=== PATIENT | female | born 1960 | race Caucasian/White ===

== ENCOUNTER 2017-06-14 12:16 | Emergency (ER) | payer OTHER, SELFPAY ==
[2017-06-14 12:18] VITALS: BP 108/69; PULSE 108; RESP 16; TEMP 37; O2SAT 95; BMI 23.1
--- NOTE | 2017-06-14 12:38 | ED.DCSUM_ITS ---
- ER Visit Summary Date of Service: 06/14/17 Chief Complaint: Dental pain History of Present Illness: The patient is a 57 F who has an appointment with dental works tomorrow. She also sees Dr. Riggs. She reports that her left maxillary first molar broke approximately 1 year ago. However, she has pain that began 2 days ago. It is a throbbing pain that is 10 out of 10 severity. Is worsened by eating and cold temperatures. Is relieved by NSAIDs. She reports that she has been nauseated and vomited once today without blood. Physical Examination: Vitals: Stable. Afebrile. Mouth: No trismus. No edema of the floor of the mouth. Left maxillary first molar is eroded to gumline. She has soft tissue swelling over her left maxilla. No focal abscess. General: A&O x 3. NAD. Cardiovascular exam: Regular rate and rhythm, no murmur, rub or gallop. Respiratory exam: Clear to auscultation bilaterally. No wheezes or stridor. Abdominal exam: Soft, nontender, nondistended, normal bowel sounds. No peritoneal signs. Extremity: No clubbing, cyanosis, or edema. Emergency Department Course and Treatment: An OAR[facility] report was obtained and was negative. She was treated with [place], Zofran, and penicillin here. Treatment Plan: Patient will be discharged with [place], Zofran, and penicillin. Instructed to keep her appointment with her dentist. Disposition: To home in improved and stable condition. Impression: 1. Dental abscess. This note was generated with [employer] dictation software. It may contain incorrect words, spelling, and punctuation that were not noted in review of the chart prior to signing ED Disposition - Plan for ED Patient: Disposition: Home or Assisted Living Chief Complaint: Dental Instructions: Dental Abscess Prescriptions: Hydrocodone Bitart/Apap 5-325 [[place] 5/325] 1 - 2 tablet PO Q4H PRN PRN 3 Days # 20 tablet PRN Reason: Pain Ondansetron [Zofran Odt] 4 mg PO Q8H PRN PRN #10 tablet PRN Reason: Nausea Penicillin V Potassium 500 mg PO 4X/DAY #40 tablet Referrals: Dentist,Your [STAFF PHYSICIAN] - Keep Deangelo appointment
[2017-06-14] MEDS: Ondansetron ODT 4 MG Tablet PO (12:43)
[2017-06-14] MEDS: Penicillin Vk 250 MG Tablet 500 MG PO (12:49)
[2017-06-14] MEDS: HYDROcodone Bitartrate/Apap 5/325 Tablet PO (12:49)
--- OUTSIDE RECORDS SUMMARY | 2017-06-14 12:50 | XMS RPT_ITS ---
:1960 Demographics Phone Unavailable Preferred Language eng-US Marital Status Unknown Scientology Affiliation Unknown Race Unknown Ethnic Group Unknown Author Organization [facility] Care Team Providers Name Role Phone Willi Morel Attending Unavailable PROBLEMS PROBLEMS No Problem Records FoundPROCEDURES PROCEDURES No Procedure Records FoundRESULTS RESULTS No Result Records FoundALLERGIES ALLERGIES DATE TYPE / CODE NAME / CODE REACTION SEVERITY SOURCE 06/14/2017 Drug No Known Unknown [facility] Allergy/4160 Allergies/F00 [facility] [address](SNOMED [id number](RXNOR Repository CT) M) ENCOUNTERS ENCOUNTERS ADMIT/DISCHARGE ACCOUNT ADMITTING ENCOUNTER LOCATION SOURCE NUMBER CLASS 06/14/2017 [id number] [facility] [place] [address] [place] [address] ing:ED Repository PAYERS PAYERS ENCOUNTER GUARANTOR PAYER SUBSCRIBER SOURCE 06/14/2017 Primary NOT GIVENUNK [facility] Insurance:SELF PAY [place] Number: Effective Repository Date:2017-06-14
[2017-06-14 12:57] VITALS: BP 138/57; PULSE 71; RESP 16; O2SAT 97
== END 2017-06-14 12:57 | disposition home or self-care (01) ==
PROVIDERS: Emergency Provider Emergency Medicine; Family Provider Family Medicine; PCP Family Medicine
DX: K08.89 Other specified disorders of teeth and supporting structures (principal); K04.7 Periapical abscess without sinus; E03.9 Hypothyroidism, unspecified; Z87.891 Personal history of nicotine dependence
CPT/HCPCS: 99283

== ENCOUNTER 2019-05-30 13:31 | Emergency (ER) | payer OTHER, SELFPAY ==
[2019-01-11 17:13] VITALS: BMI 25.0
[2019-05-30 13:32] VITALS: BP 158/89; PULSE 123; RESP 15; TEMP 36.9; O2SAT 98; BMI 25.5
--- NOTE | 2019-05-30 13:36 | EKG12_ITS ---
Test Reason : PALPS Blood Pressure : / mmHG Vent. Rate : 108 BPM Atrial Rate : 108 BPM P-R Int : 130 ms QRS Dur : 084 ms QT Int : 328 ms P-R-T Axes : 057 013 026 degrees QTc Int : 439 ms Sinus tachycardia Otherwise normal ECG Confirmed by JENNY DUMONT, PRESTON ([id number]), primer expeditor and drier JOSLYN GOODWIN ([id number]) on 06/01/2019 9:50:16 AM Referred By: KIRSTY Confirmed By:PRESTON ALVARADO MD
[2019-05-30 14:03] VITALS: BP 124/75; PULSE 108; RESP 18; O2SAT 94
--- NOTE | 2019-05-30 14:27 | ED.DCSUM_ITS ---
History of Present Illness Chief Complaint: Palpitations Informant: Patient Onset: Hours - 1-2 Timing: Intermittent, Lasts - Few minutes Quality: Palpitations/skipping/racing Location: Chest Current Severity: Mild Maximum Severity: Severe Worsened by: Nothing in particular Relieved by: Nothing Associated Symptoms: Brief chest tightness Narrative: Patient states she was sitting at work and suddenly felt the symptoms. She felt like her heart was pounding or racing after the initial skipping. It lasted for a few minutes. She now feels an occasional skipped, but nothing like she did earlier. She denies any shortness of breath or lightheadedness/near syncope or syncope. No recent long travel, hospitalization, surgery, leg pain or swelling. No history of DVT or PE. She has a history of hyperthyroidism, Graves' that has been treated medically and methimazole is the only medication she takes right now. She had a dysrhythmia associated with this that she was put on metoprolol for, she states it was diagnosed as tachycardia. She drinks 1 cup of coffee per day and no other caffeinated beverages. No illicit drugs or other stimulants. No recent cold medications in the last couple days. - Past Medical History (1) Graves disease Status: Chronic Past Medical History - Allergies and Home Meds Allergies/Adverse Reactions: Allergies No Known Allergies Allergy (Verified 05/30/19 13:35) Primary Care Physician: Lj Riggs [Primary Care Provider] - Smoking Status: Former smoker Drugs: None Review of Systems General: Denies: Chills, Fever, Sweats Eyes: Denies: Visual changes - bilaterally, Diplopia ENT: Denies: Rhinorrhea, Sore throat Cardiovascular: Reports: Chest pain, Palpitations, Heart racing Respiratory: Denies: Dyspnea, Cough, Dyspnea on exertion Gastrointestinal: Denies: Abdominal pain, Nausea, Vomiting, Diarrhea, Melena, Hematochezia Genitourinary: Denies: Dysuria, Hematuria, Frequency Musculoskeletal: Denies: Back pain, Swelling, Extremity Pain Skin: Denies: Rash, Wounds Neurological: Denies: Headache, Weakness, Numbness Physical Exam Vital Signs/Narrative: Vital Signs Temp Pulse Resp BP Pulse Ox 05/30/19 14:03 108 H 18 124/75 H 94 05/30/19 13:32 98.5 F 123 H 15 158/89 H 98 Inital Vital Signs reviewed: Yes General: Well nourished, Well developed, No Acute Distress Head: Normocephalic, Atraumatic Eyes: Perrl, EOMI ENT: Moist mucous membranes, No rhinorrhea Neck: Supple, Nontender, No JVD Cardiovascular: Regular rate, Regular rhythm, No murmurs, Normal S1, Normal S2, Tachycardia - Mild Respiratory: No distress, CTA bilaterally, Chest nontender Abdomen: Soft, Nontender, Nondistended, Normal bowel sounds Back: Nontender, Normal Inspection Extremities: Nontender, No edema. Negative for: Calf Tenderness Skin: Normal color, No rash, No Trauma Neurological: Alert, Oriented x3, Cranial nerves II-XII grossly intact, Normal Strength, Normal Sensation, Normal Gait Psychological: Normal affect - Except a little anxious, Normal Mood Diagnostic/Tx/Re-eval Laboratory Results 05/30/19 05/30/19 05/30/19 14:35 14:35 14:35 WBC 6.3 RBC 4.30 Hgb 13.0 Hct 37.2 MCV 86.5 MCH 30.2 MCHC 34.9 RDW Std Deviation 36.8 RDW Coeff of Osiel 11.6 Plt Count 219 MPV 9.5 Immature Gran % (Auto) 0.200 Neut % (Auto) 62.7 Lymph % (Auto) 22.7 Grundy % (Auto) 11.9 H Eos % (Auto) 2.2 Baso % (Auto) 0.3 Absolute Neuts (auto) 3.9 Absolute Lymphs (auto) 1.43 Nucleated RBC % 0 Sodium 141 Potassium 3.8 Chloride 110 H Carbon Dioxide 27.0 Anion Gap 4 L BUN 10 Creatinine 0.64 Estim Creat Clear Calc 83.75 Est GFR (MDRD) Af Amer 124 Est GFR (MDRD) Non-Af 102 BUN/Creatinine Ratio 15.7 Glucose 106 Calcium 8.9 Troponin I < 0.015 TSH < 0.01 L - Rhythm Strip Rhythm Strip: Sinus Tach Rate: 115 Ectopy: PAC(s) - Frequent on monitor, patient symptomatic with them - EKG Initial EKG Interpretation: No Acute Injury Pattern, Sinus Tachycardia - Medical Decision Making Labs are normal with the exception of the TSH that is extremely low, indicating that her thyroid hormones are probably elevated. Since she is not in thyroid storm I do not think we need to admit her to the hospital or discern the exact levels at this time. After metoprolol, she is feeling much better, no more PACs and her rate is steady in the 80s. She states this is unusual because when she is hyperthyroid she usually gets more symptoms such as weight loss, bulging eyes, diarrhea, etc. she has had none of that lately. She saw an weaver apprentice long ago who started her on the methimazole but now her PCP manages it and wants me to see an weaver apprentice. She does not want to go back to the when she saw and would like somebody closer. I was able to discuss with Dr. Hinds who is an weaver apprentice in our area and she recommends increasing her dose to 10 mg and making an appointment which the patient is very comfortable with doing as am I. ED Disposition - Plan for ED Patient: Disposition: Home or Assisted Living Diagnosis: Heart palpitations, Hyperthyroidism, PAC (premature atrial contraction) Instructions: Premature Ventricular Contractions, Palpitations, Hyperthyroidism Referrals: Lj Riggs [Primary Care Provider] - Camacho Hinds MD [STAFF PHYSICIAN] - (When able; call for appointment) Additional Instructions: Increase your methimazole to 10 mg once daily until you are seen by Dr. Hinds.
[2019-05-30] MEDS: Metoprolol Tartrate 25 MG Tablet PO (14:30)
[2019-05-30 14:46] LABS: Absolute Lymphocyte Count 1.43 X10^3/uL (0.83-4.51); Absolute Neutrophil Count 3.9 X10^3/uL (2.0-7.7); Basophil# 0.02 X10^3/uL; Basophil% 0.3 % (0-1); Eosinophil# 0.14 X10^3/uL; Eosinophils% 2.2 % (0-5); Hematocrit 37.2 % (37-47); Lymphocyte # 1.43 X10^3/ul (4.0); Lymphocyte % 22.7 % (19-41); Mean Corp Hgb Conc 34.9 g/dL (32-36); Mean Corpuscular Hgb 30.2 pg (27.0-32.0); Mean Corpuscular Volume 86.5 fL (81-99); Mean Platelet Vol. 9.5 fl (6.2-12.0); Monocyte# 0.75 X10^3/uL; Monocyte% 11.9 % (0-10); NRBC Flagged by Analyzer 0 % (0-5); Neutrophil # 3.94 X10^3/uL (2.7-7.7); Neutrophil % 62.7 % (47-70); Platelet Count 219 K/mm3 (150-450); RBC Distribution Width CV 11.6 % (11.6-14.6); RBC Distribution Width SD 36.8 fl (35.1-43.9); White Blood Count 6.3 K/mm3 (4.4-11.0)
[2019-05-30 15:21] LABS: Anion Gap 4 (5-15); BUN 10 mg/dL (7-18); BUN/Creat Ratio 15.7 RATIO (10-20); Calcium,Total 8.9 mg/dL (8.5-10.1); Chloride 110 mmol/L (98-107); Creatinine, Serum 0.64 mg/dL (0.55-1.02); EST Glomerular Filtration Rate 102 mL/min (>60); Est Glom Filt Rate - Afr Amer 124 mL/min (>60); Estimated Creatinine Clearance 83.75 ml/min; Glucose 106 mg/dL (74-106); Potassium 3.8 mmol/L (3.5-5.1); Sodium Level 141 mmol/L (136-145)
[2019-05-30 15:23] VITALS: BP 127/77; PULSE 89; RESP 22; O2SAT 97
[2019-05-30 15:47] LABS: Thyroid Stim Hormone (TSH) < 0.01 uIU/mL (0.358-3.74)
== END 2019-05-30 16:38 | disposition home or self-care (01) ==
PROVIDERS: Emergency Provider Emergency Medicine; PCP Family Medicine
DX: I49.1 Atrial premature depolarization (principal); E05.00 Thyrotoxicosis with diffuse goiter without thyrotoxic crisis or storm; Z87.891 Personal history of nicotine dependence
CPT/HCPCS: 80048; 84443; 84484; 85025; 93005; 99284; A4216

== ENCOUNTER → 2019-06-28 08:46 | Outpatient (CLI) | payer OTHER, SELFPAY ==
[2019-06-28 08:40] VITALS: BMI 25.5
[2019-06-28 10:12] LABS: Free T3 3.3 pg/mL (2.18-3.98); T4 Free Direct 1.17 ng/dL (0.76-1.46); Thyroid Stim Hormone (TSH) < 0.01 uIU/mL (0.358-3.74)
== END ==
PROVIDERS: PCP Family Medicine; Referring Provider Internal Medicine Endocrinology, Diabetes & Metabolism; Visit Provider Internal Medicine Endocrinology, Diabetes & Metabolism
DX: E05.00 Thyrotoxicosis with diffuse goiter without thyrotoxic crisis or storm (principal)
CPT/HCPCS: 36415; 84439; 84443; 84481

== ENCOUNTER → 2019-07-05 08:13 | Outpatient (CLI) | payer OTHER, SELFPAY ==
[2019-06-28 08:40] VITALS: BMI 25.5
--- NOTE | 2019-07-05 08:17 | BD_ITS ---
STUDY: DUAL ENERGY X-RAY ABSORPTIOMETRY / DXA REASON FOR EXAM: Female, 59 years old. CONGREGATIONAL CARE PASTOR-SURGICAL EARLY AT 31 YRS OLD -- HX OF HRT IN PAST FOR FEW YRS -- HX OF SMOKING- QUIT 2.5 YRS AGO -- TAKES THYROID MEDICATION -- DOES MODERATE AMOUNT OF EXERCISE -- KIKI OF 0.75 INCHES TECHNIQUE: Bone Mineral Density (BMD) measurements of lumbar spine and bilateral hips were obtained. COMPARISON: None. FINDINGS: Lumbar Spine (L1-L4): g/cm2 (0.977) / T-score (-1.6) / Z-score (-0.6) Findings are suggestive of osteopenia with a moderate fracture risk. Left Femur Total: g/cm2 (0.881) / T-score (-1.0) / Z-score (-0.2) Left Femoral Neck: g/cm2 (0.874) / T-score (-1.2) / Z-score (-0.1) Right Femur Total: g/cm2 (0.829) / T-score (-1.4) / Z-score (-0.7) Right Femoral Neck: g/cm2 (0.833) / T-score (-1.5) / Z-score (-0.4 no priors) BD/Dexa Bone Density Study IMPRESSION: The patient is considered osteopenic as outlined below according to World [employer] Organization (WHO) criteria with a moderate fracture risk. Reference Information: The T-score is the number of standard deviations above or below the standard which is normal for young adults at their peak bone mineral density. The World Health Organization (WHO) interprets the T-scores as follows: Above -1 Normal bone density Between -1 and -2.5 Osteopenia Equal to / or below -2.5 Osteoporosis As a practical clinical guideline, osteopenia may be graded as follows: Mild -1 through -1.5 Moderate -1.6 through -2.0 Severe -2.1 through -2.4 The Z-score is the number of standard deviations above or below age-matched controls. A Z-score of less than -1.5 would be considered abnormal. References: 1. NIH Osteoporosis and Related Bone Diseases http://www.osteo.org 2. International Society for Clinical Densitometry http://www.iscd.org 3. National Osteoporosis Foundation http://www.nof.org Electronically Signed: Ted Mccain, at 11:13 EDT , Service support ,
== END ==
LOC: OPBD 08:14
PROVIDERS: PCP Family Medicine; Referring Provider Internal Medicine Endocrinology, Diabetes & Metabolism; Visit Provider Internal Medicine Endocrinology, Diabetes & Metabolism
DX: E89.40 Asymptomatic postprocedural ovarian failure (principal); E05.90 Thyrotoxicosis, unspecified without thyrotoxic crisis or storm
CPT/HCPCS: 77080

== ENCOUNTER → 2019-10-03 08:21 | Outpatient (CLI) | payer OTHER, SELFPAY ==
[2019-06-28 08:40] VITALS: BMI 25.5
[2019-10-03 13:11] LABS: Free T3 3.4 pg/mL (2.18-3.98); T4 Free Direct 1.13 ng/dL (0.76-1.46); Thyroid Stim Hormone (TSH) < 0.01 uIU/mL (0.358-3.74)
== END ==
PROVIDERS: PCP Family Medicine; Referring Provider Internal Medicine Endocrinology, Diabetes & Metabolism; Visit Provider Internal Medicine Endocrinology, Diabetes & Metabolism
DX: E05.00 Thyrotoxicosis with diffuse goiter without thyrotoxic crisis or storm (principal)
CPT/HCPCS: 36415; 84439; 84443; 84481

== ENCOUNTER → 2020-03-21 09:07 | Outpatient (CLI) | payer OTHER, SELFPAY ==
[2020-03-21 08:45] VITALS: BMI 25.9
[2020-03-21 12:41] LABS: Absolute Lymphocyte Count 1.42 X10^3/uL (0.83-4.51); Absolute Neutrophil Count 2.8 X10^3/uL (2.0-7.7); Basophil# 0.03 X10^3/uL; Basophil% 0.6 % (0-1); Eosinophil# 0.13 X10^3/uL; Eosinophils% 2.8 % (0-5); Hematocrit 44.7 % (37-47); Lymphocyte # 1.42 X10^3/ul (4.0); Lymphocyte % 30.1 % (19-41); Mean Corp Hgb Conc 33.6 g/dL (32-36); Mean Corpuscular Hgb 30.2 pg (27.0-32.0); Mean Corpuscular Volume 89.9 fL (81-99); Mean Platelet Vol. 9.8 fl (6.2-12.0); Monocyte# 0.35 X10^3/uL; Monocyte% 7.4 % (0-10); NRBC Flagged by Analyzer 0 % (0-5); Neutrophil # 2.77 X10^3/uL (2.7-7.7); Neutrophil % 58.9 % (47-70); Platelet Count 274 K/mm3 (150-450); RBC Distribution Width CV 11.9 % (11.6-14.6); RBC Distribution Width SD 38.9 fl (35.1-43.9); Red Blood Count 4.97 M/mm3 (4.2-5.4); White Blood Count 4.7 K/mm3 (4.4-11.0)
[2020-03-21 12:57] LABS: Vitamin B12 423 pg/mL (211-911); Vitamin D,25 Hydroxy 24.8 ng/mL
[2020-03-21 13:00] LABS: Cholesterol 330 mg/dL (200); Ferritin 28 ng/mL (8-252); High Density Lipoprotein 56 mg/dL; T4 Free Direct 1.06 ng/dL (0.76-1.46); Thyroid Stim Hormone (TSH) 0.03 uIU/mL (0.358-3.74); Triglycerides 154 mg/dL; Very Low Density Lipoprotein 31 mg/dL (5-40)
== END ==
PROVIDERS: PCP Family Medicine; Referring Provider Internal Medicine Endocrinology, Diabetes & Metabolism; Visit Provider Internal Medicine Endocrinology, Diabetes & Metabolism
DX: E61.1 Iron deficiency (principal); E53.8 Deficiency of other specified B group vitamins; E05.00 Thyrotoxicosis with diffuse goiter without thyrotoxic crisis or storm; E55.9 Vitamin D deficiency, unspecified
CPT/HCPCS: 36415; 80061; 82306; 82607; 82728; 84439; 84443; 84481; 85025

== ENCOUNTER → 2021-11-04 | Outpatient (CLI) | payer OTHER, SELFPAY ==
[2021-11-04 09:58] LABS: Absolute Lymphocyte Count 1.63 X10^3/uL (0.83-4.51); Absolute Neutrophil Count 3.7 X10^3/uL (2.0-7.7); Basophil# 0.04 X10^3/uL; Basophil% 0.7 % (0-1); Eosinophil# 0.23 X10^3/uL; Eosinophils% 3.8 % (0-5); Hematocrit 40.6 % (37-47); Hemoglobin 13.8 g/dL (12.0-15.0); Lymphocyte # 1.63 X10^3/ul (0.83-4.51); Lymphocyte % 27.1 % (19-41); Mean Corpuscular Hgb 30.1 pg (27.0-32.0); Mean Corpuscular Volume 88.5 fL (81-99); Mean Platelet Vol. 8.9 fl (6.2-12.0); Monocyte% 6.6 % (0-10); NRBC Flagged by Analyzer 0 % (0-5); Neutrophil # 3.71 X10^3/uL (2.7-7.7); Neutrophil % 61.6 % (47-70); Platelet Count 217 K/mm3 (150-450); Red Blood Count 4.59 M/mm3 (4.2-5.4)
[2021-11-04 10:34] LABS: AST(SGOT) 19 U/L (15-37); Alanine Aminotransfer ALT/SGPT 25 U/L (13-56); Albumin, Serum 3.8 g/dL (3.2-5.0); Alkaline Phosphatase 152 U/L (45-117); Anion Gap 5 (5-15); BUN 11 mg/dL (7-18); BUN/Creat Ratio 17.5 RATIO (10-20); Bilirubin, Direct 0.15 mg/dL (0.00-0.30); Calcium,Total 8.9 mg/dL (8.5-10.1); Chloride 108 mmol/L (98-107); Creatinine, Serum 0.63 mg/dL (0.55-1.02); EST Glomerular Filtration Rate 103 mL/min (>60); Est Glom Filt Rate - Afr Amer 125 mL/min (>60); Globulin 3.4 g/dL (2.2-4.2); Glucose 101 mg/dL (74-106); Potassium 4.1 mmol/L (3.5-5.1); Protein, Total 7.2 g/dL (6.4-8.2); Sodium Level 140 mmol/L (136-145)
[2021-11-04 10:58] LABS: Hepatitis B Surface Antibody Non-Reactive; Hepatitis B Surface Antigen Non-Reactive (Nonreactive); Hepatitis C Antibody Non-Reactive (Nonreactive)
== END | disposition home or self-care (01) ==
PROVIDERS: PCP Family Medicine; Referring Provider Physician Assistant Medical; Visit Provider Physician Assistant Medical
DX: L40.0 Psoriasis vulgaris (principal); L40.59 Other psoriatic arthropathy; Z79.899 Other long term (current) drug therapy; L60.3 Nail dystrophy
CPT/HCPCS: 36415; 80048; 80076; 85025; 86480; 86705; 86706; 86803; 87340